=== PATIENT | female | born 1990 | race Caucasian/White ===

== ENCOUNTER 2017-07-24 21:08 | Emergency (ER) | payer OTHER ==
[~2017-07-24] VITALS: Ht 152.4 cm; Wt 40.0 kg
[~2017-07-24 21:08] MED LIST: ALBU1AER INH; IOHEXOL 350 MG/ML 10 ML VIAL (for RAD DIAG) IVCONTRAST ONE; PROM25TA5 PO; TRAM50TA PO; ZITH250T PO
[2017-07-24 21:10] VITALS: BP 128/86; PULSE 110; RESP 16; TEMP 98.9; O2SAT 100
[2017-07-25 00:08] VITALS: BP 135/79; PULSE 83; RESP 18; O2SAT 100
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
[2017-07-25] MEDS ORDERED: BISACODYL 10 MG SUPP RECTAL ONE (00:15)
[2017-07-25] MEDS ORDERED: SODIUM CHLOR 0.9% 1000 ML INJ 1,000 ML IV ONE (00:15)
[2017-07-25 01:01] LABS: BASOPHIL # 0.1 TH/MM3 (0-0.2); BASOPHIL % 0.7 % (0.0-2.0); EOSINOPHIL # 0.2 TH/MM3 (0-0.4); EOSINOPHIL % 2.1 % (0.0-4.0); HEMATOCRIT 41.5 % (35.0-46.0); LYMPH % 27.9 % (9.0-44.0); LYMPHOCYTE # 2.7 TH/MM3 (1.0-4.8); MEAN CELL VOLUME 92.4 FL (80.0-100.0); MEAN CORPUSCULAR HEMOGLOBIN 31.2 PG (27.0-34.0); MEAN CORPUSCULAR HGB CONC 33.8 % (32.0-36.0); MEAN PLATELET VOLUME 9.4 FL (7.0-11.0); MONO % 7.7 % (0.0-8.0); MONOCYTE # 0.7 TH/MM3 (0-0.9); NEUT % 61.6 % (16.0-70.0); PLATELET COUNT 189 TH/MM3 (150-450); WHITE BLOOD COUNT 9.7 TH/MM3 (4.0-11.0)
[2017-07-25 01:24] LABS: BACTERIA, URINE RARE /hpf; BILIRUBIN, URINE NEG (NEG); BLOOD, URINE NEG (NEG); GLUCOSE,URINE NEG (NEG); KETONE, URINE NEG (NEG); MUCUS URINE FEW /lpf (OCC); NITRITE,URINE NEG (NEG); SQUAMOUS EPITHELIAL CELL URINE 6 /hpf (0-5); URINE COLOR YELLOW (YELLW/STRAW); URINE LEUKOCYTE ESTERASE NEG (NEG)
[2017-07-25 01:33] LABS: ALKALINE PHOSPHATASE 70 U/L (45-117); TOTAL BILIRUBIN ADULT 0.3 MG/DL (0.2-1.0); TOTAL PROTEIN 7.9 GM/DL (6.4-8.2)
[2017-07-25 01:39] LABS: ALBUMIN 4.3 GM/DL (3.4-5.0); ALT (GPT) 18 U/L (10-53); AST (GOT) 22 U/L (15-37); BICARBONATE 26.8 MEQ/L (21.0-32.0); BLOOD UREA NITROGEN 7 MG/DL (7-18); CALCIUM 8.7 MG/DL (8.5-10.1); CHLORIDE 107 MEQ/L (98-107); CREATININE 0.67 MG/DL (0.50-1.00); GLOMERULAR FILTRATION RATE 105 ML/MIN (>89); GLUCOSE,RANDOM 61 MG/DL (74-106); SODIUM (NA) 140 MEQ/L (136-145)
--- NOTE | 2017-07-25 02:03 | RADRPT ---
EXAM DATE/TIME: 07/25/2017 01:22 [facility] COMPARISON: CT ABDOMEN & PELVIS W CONTRAST, February 20, 2014, 7:57. INDICATIONS : Abdomen pain. IV CONTRAST: 100 cc Omnipaque 350 (iohexol) IV ORAL CONTRAST: No oral contrast ingested. RADIATION DOSE: 6.64 CTDIvol (mGy) MEDICAL HISTORY : Ovarian cyst. SURGICAL HISTORY : None. ENCOUNTER: Initial ACUITY: 1 day PAIN SCALE: 5/10 LOCATION: Bilateral abdomen TECHNIQUE: Volumetric scanning of the abdomen and pelvis was performed. Using automated exposure control and ad justment of the mA and/or kV according to patient size, radiation dose was kept as low as reasonably achievable to obtain optimal diagnostic quality images. DICOM format image data is available electro nically for review and comparison. FINDINGS: LOWER LUNGS: The visualized lower lungs are clear. LIVER: Homogeneous density without lesion. There is no dilation of the biliary tree. No calcified gallston es. SPLEEN: Normal size without lesion. PANCREAS: Within normal limits. KIDNEYS: Normal in size and shape. There is no mass, stone or hydronephrosis. ADRENAL GLANDS: Within normal limits. VASCULAR: There is no aortic aneurysm. BOWEL/MESENTERY: The stomach, small bowel, and colon demonstrate no acute abnormality. There is no free intraperitone al air or fluid. The appendix appears normal. It is best seen on coronal images. ABDOMINAL WALL: Within normal limits. RETROPERITONEUM: There is no lymphadenopathy. BLADDER: No wall thickening or mass. REPRODUCTIVE: There is a complex cystic area seen in the right adnexa likely related to enlarged right ovary with c ystic change. What appears to be the right ovary measures 4.1 x 2.6 x 3.2 cm. There are [address] seen measuring 2.6 and 1.8 cm. There is free fluid in the cul-de-sac. The left ovary is not marke d. The uterus is unremarkable. INGUINAL: There is no lymphadenopathy or hernia. MUSCULOSKELETAL: Within normal limits for patient age. CONCLUSION: Cystic change in the right adnexa likely related to right ovary cysts. There is free fluid in the cul -de-sac. Other acute processes such as tubo-ovarian abscess cannot be excluded in the clinical situat ion. It should be noted the left adnexa appears normal. The appendix is normal. Blue Newman MD on July 25, 2017 at 1:56 Board Certified Radiologist. This report was verified electronically.
[2017-07-25] MEDS ORDERED: KETOROLAC TROMETHAMINE 30 MG/ML (IVP) VIAL IV PUSH ONE (03:15)
[2017-07-25] MEDS ORDERED: DICL75TA PO (03:15)
== END 2017-07-25 03:32 | disposition home or self-care (01) ==
LOC: NEPD 21:08
DX: N83.201 Unspecified ovarian cyst, right side (principal); F17.200 Nicotine dependence, unspecified, uncomplicated
CPT/HCPCS: 74177; 80053; 81001; 84703; 85025; 96361; 96374; 99285; J1885; J7030; Q9967